=== PATIENT | female | born 1980 | race Caucasian/White ===

== ENCOUNTER 2018-07-09 02:52 | Inpatient (IN) | payer OTHER, SELFPAY ==
[2018-07-09] VITALS (21 sets, daily range): BP systolic 93–123; BP diastolic 50–71; PULSE 80–96; RESP 16–18; TEMP 36.1–37.1; O2SAT 97–100; BMI 35.3
[2018-07-09] MEDS: Lactated Ringers 1,000 ML 999 ML IV (04:05)
[2018-07-09 04:26] LABS: Absolute Lymphocyte Count 2.35 X10^3/ul (0.83-4.51); Absolute Neutrophil Count 10.5 X10^3/uL (2.0-7.7); Basophil# 0.03 X10^3/uL; Basophil% 0.2 % (0-1); Eosinophil# 0.14 X10^3/uL; Hematocrit 35.8 % (37-47); Hemoglobin 12.3 g/dl (12.0-15.0); Lymphocyte # 2.35 X10^3/ul (4.0); Lymphocyte % 16.5 % (19-41); Mean Corp Hgb Conc 34.4 g/gl (32-36); Mean Corpuscular Hgb 30.3 pg (27.0-32.0); Mean Corpuscular Volume 88.2 fL (81-99); Mean Platelet Vol. 10.6 fl (6.2-12.0); Monocyte# 1.08 X10^3/uL; Monocyte% 7.6 % (0-10); Neutrophil # 10.46 X10^3/uL (2.7-7.7); Neutrophil % 73.5 % (47-70); Platelet Count 206 K/mm3 (150-450); RBC Distribution Width CV 13.8 % (11.6-14.6); RBC Distribution Width SD 43.2 fl (35.1-43.9); Red Blood Count 4.06 M/mm3 (4.2-5.4); White Blood Count 14.2 K/mm3 (4.4-11.0)
[2018-07-09 04:27] LABS: POSITIVE COUNT NO; POSITIVE DIFFERENTIAL NO; POSITIVE MORPHOLOGY NO
[2018-07-09 05:06] LABS: Group B Strep DNA By PCR Negative (Negative); Internal Control PASS; Probe Check PASS; Specimen Processing Control PASS
[2018-07-09] MEDS: Cefazolin 2 GM in 0.9% Normal Saline 100 ML IV (05:47)
[2018-07-09] MEDS: Sodium Citrate/Citric Acid 30 ML UDC PO (05:48)
[2018-07-09] MEDS: Lactated Ringers 1,000 ML 150 ML IV (05:48)
--- NOTE | 2018-07-09 06:00 | PCM.HP.OB ---
- Problem List (1) 36 weeks gestation of Status: Acute (2) Rupture, membranes, premature Status: Acute (3) AMA (advanced maternal age) multigravida 35+ Status: Acute (4) History of delivery Status: Acute History Date of Admission: 07/09/18 Final DIANA: 08/02/18 Gestational age: 36 Weeks and 4 Days History of this : This is a 37 year-old, G2, P1001, at 36 weeks gestational age who presents with PPROM for clear fluid at home. Feeling mild contractions. No vb. +FM. Allergies No Known Allergies Allergy (Verified 07/09/18 03:45) Home Medications: Home Medications Vits [Prenatabs FA ] 1 tablet PO DAILY 03/20/15 Smoking Status: Never smoker Number of Fetus(es): 1 Heart Tracing: Category 1 History Past Pregnancies: Past Pregnancies Delivery Date Name GA/Weeks Outcome Route Weight Infant Gender Labor Length Anesthesia Delivery Location Provider FOB 40w4d PLTCS Expected Infant Delivery Method: Repeat Section Review of Systems Gynecological: Reports: - - +PPROM for clear fluid Physical Exam General: Alert, No apparent distress HEENT: Atraumatic Lungs: - - No increased resp effort Abdomen: Gravid Extremities:: No edema Neurological: Neuro grossly intact Estimated gestational size: Appropriate for gestational size Assessment/Plan All Active Problems 36 weeks gestation of (Acute) Rupture, membranes, premature (Acute) AMA (advanced maternal age) multigravida 35+ (Acute) History of delivery (Acute) This is a 37 year-old, G2, P1001, at 36 weeks gestational age who presents with PPROM. - Discussed risks and benefits of BMZ for lung maturity, and completing the course. Patient is agreeable to C/S rather than BMZ now and in 24 hours - Discussed baby may need to go to special care nursery, and small chance of baby needing transferred due to prematurity - Risks of a section discussed and patient signed consent - Will proceed with RLTCS
[2018-07-09] MEDS: Oxytocin 30 units/NS 500 ml 30 UNITS/500 ML IV.SOLN 167 UNITS IV (06:35)
[2018-07-09] MEDS: Ketorolac 30 MG/ML Syringe IV ×3 (07:05→19:02)
--- NOTE | 2018-07-09 07:22 | PCM.OPRPT ---
Problem List (1) 36 weeks gestation of Status: Acute (2) Rupture, membranes, premature Status: Acute (3) AMA (advanced maternal age) multigravida 35+ Status: Acute (4) History of delivery Status: Acute Report of Operation Date of Procedure: 07/09/18 Pre-Operative Diagnosis: 36 week gestation, PPROM, AMA, history of prior section Post-Operative Diagnosis: As above Surgery/Procedure Performed:: Repeat low transverse section via pfannenstiel skin incision Description of Surgical Findings:: Minimal adhesive disease. Rectus muscles adherent in the midline. Peritoneum adherent to the rectus. Bladder slightly adhered to the anterior uterus with adhesive bands on the patient's right side. Right fallopian tube adherent to the right side of the uterus. Baby in vertex position. Clear fluid. Intact and normal appearing placenta with 3 VC. Type of Anesthesia:: Spinal Specimen's removed: Placenta Estimated Blood Loss (mL): 500 Description of Procedure: Patient was prepped and draped in usual sterile fashion. Abdominal and vaginal preps were performed. Spinal anesthesia was noted to be adequate. The prior Pfannenstiel skin incision was used, and using a scalpel the incision was carried down to the fascia. The fascia was incised in the midline and extended laterally using Weiner scissors. The fascia was then dissected off of the rectus muscles cephalad and caudad using sharp dissection. The rectus muscles were adherent in the midline. The Bovie cautery was used to start to separate the rectus muscles in the midline. The rectus muscles were then in the midline using sharp dissection, and the peritoneum was noted to be adhered to the rectus. The peritoneum was extended superior and inferior with good visualization of the bladder. A bladder flap was attempted to be created, but due to adhesions a full bladder flap was not created. A low transverse incision was made on the uterus with good visualization of the bladder. Clear fluid noted. was in vertex position and elevated out of the uterine incision. VFI delivered atraumatically, and without any force or delay. was dried and bulb suctioned, and the cord was clamped and cut after 60 sec delay. handed off to nursery staff. The placenta was manually removed. The placenta was noted to be normal and intact with a 3 VC. The uterus was exteriorized. The right fallopian tube was noted to be adhered to the uterus. Otherwise bilateral adnexa were normal. The uterus was cleared of all clot and debris. The uterine incision was closed in a running locked fashion. The right angle of the uterine incision was minimally bleeding after closure, therefore several additional [id number] sutures were placed at the right angle for hemostasis. Hemostasis was noted. The uterus was placed back into the abdomen. The uterine incision was again inspected and noted to be hemostatic. Arrista was placed over the uterine incision. The peritoneum was closed in a running fashion. The fascia was closed in a running fashion. The subcutaneous layer was irrigated, and then closed in a running fashion. The skin was closed with suture in a subcuticular fashion. Steri strips were placed, as well as a dressing. Patient tolerated procedure well and was taken to the recovery room in stable condition. Instrument counts were correct. Grafts/Implants Used: None - Complications None - Admit VTE Documentation VTE Present on Admission: No VTE Mechan Device Prophylaxis: SCD's VTE Pharm Prophylaxis ordered?: No Delivery Classification: REINIER Final DIANA: 08/02/18 Gestational age: 36 Weeks and 4 Days Indications for : - - Prior section, PPROM Description of Procedure: See above Amniotic Membrane Rupture Type: Spontaneous Amniotic Fluid Description: Clear Specimen(s) sent to pathology: None Drain: Salgado to straight drain Cord Entanglement: None Cord Vessel Description: 3 Vessels Esitmated Blood Loss (ml): 500 Gender: Female (1 minute): 8 (5 minute): 9 Delayed cord clamping: Yes Pre-op Antibiotic Given: Ancef 2 grams IV x1 Pt instructed on risks of surgery: Bleeding, Infection, Injury to surrounding structure(s) including bowel and bladder Complications: None - Admit VTE Documentation VTE Present on Admission: No VTE Mechan Device Prophylaxis: SCD's VTE Pharm Prophylaxis ordered?: No Baby B - Information Amniotic Membrane Rupture Type: Spontaneous Presentation: Vertex - Operative Information Cord Entanglement: None Cord Vessel Description: 3 Vessels B gender: Female (1 minute): 8 (5 minute): 9
--- NOTE | 2018-07-09 07:38 | OP.PCM_ITS ---
Problem List (1) 36 weeks gestation of Status: Acute (2) Rupture, membranes, premature Status: Acute (3) AMA (advanced maternal age) multigravida 35+ Status: Acute (4) History of delivery Status: Acute Report of Operation Date of Procedure: 07/09/18 Pre-Operative Diagnosis: 36 week gestation, PPROM, AMA, history of prior section Post-Operative Diagnosis: As above Surgery/Procedure Performed:: Repeat low transverse section via pfannenstiel skin incision Description of Surgical Findings:: Minimal adhesive disease. Rectus muscles adherent in the midline. Peritoneum adherent to the rectus. Bladder slightly adhered to the anterior uterus with adhesive bands on the patient's right side. Right fallopian tube adherent to the right side of the uterus. Baby in vertex position. Clear fluid. Intact and normal appearing placenta with 3 VC. Type of Anesthesia:: Spinal Specimen's removed: Placenta Estimated Blood Loss (mL): 500 Description of Procedure: Patient was prepped and draped in usual sterile fashion. Abdominal and vaginal preps were performed. Spinal anesthesia was noted to be adequate. The prior Pfannenstiel skin incision was used, and using a scalpel the incision was carried down to the fascia. The fascia was incised in the midline and extended laterally using Weiner scissors. The fascia was then dissected off of the rectus muscles cephalad and caudad using sharp dissection. The rectus muscles were adherent in the midline. The Bovie cautery was used to start to separate the rectus muscles in the midline. The rectus muscles were then in the midline using sharp dissection, and the peritoneum was noted to be adhered to the rectus. The peritoneum was extended superior and inferior with good vis ualization of the bladder. A bladder flap was attempted to be created, but due to adhesions a full bladder flap was not created. A low transverse incision was made on the uterus with good visualization of the bladder. Clear fluid noted. Infant was in vertex position and elevated out of the uterine incision. VFI delivered atraumatically, and without any force or delay. Infant was dried and bulb suctioned, and the cord was clamped and cut after 60 sec delay. Infant handed off to nursery staff. The placenta was manually removed. The placenta was noted to be normal and intact with a 3 VC. The uterus was exteriorized. The right fallopian tube was noted to be adhered to the uterus. Otherwise bilateral adnexa were normal. The uterus was cleared of all clot and debris. The uterine incision was closed in a running locked fashion. The right angle of the uterine incision was minimally bleeding after closure, therefore several additional [id number] sutures were placed at the right angle for hemostasis. Hemostasis was noted. The uterus was placed back into the abdomen. The uterine incision was again inspected and noted to be hemostatic. Arrista was placed over the uterine incision. The peritoneum was closed in a running fashion. The fascia was closed in a running fashion. The subcutaneous layer was irrigated, and then closed in a running fashion. The skin was closed with suture in a subcuticular fashion. Steri strips were placed, as well as a dressing. Patient tolerated procedure well and was taken to the recovery room in stable condition. Instrument counts were correct. Grafts/Implants Used: None - Complications None - Admit VTE Documentation VTE Present on Admission: No VTE Mechan Device Prophylaxis: SCD's VTE Pharm Prophylaxis ordered?: No Delivery Classification: REINIER Final DIANA: 08/02/18 Gestational age: 36 Weeks and 4 Days Indications for : - - Prior section, PPROM Description of Procedure: See above Amniotic Membrane Rupture Type: Spontaneous Amniotic Fluid Description: Clear Specimen(s) sent to pathology: None Drain: Salgado to straight drain Cord Entanglement: None Cord Vessel Description: 3 Vessels Esitmated Blood Loss (ml): 500 Infant Gender: Female (1 minute): 8 (5 minute): 9 Delayed cord clamping: Yes Pre-op Antibiotic Given: Ancef 2 grams IV x1 Pt instructed on risks of surgery: Bleeding, Infection, Injury to surrounding structure(s) including bowel and bladder Complications: None - Admit VTE Documentation VTE Present on Admission: No VTE Mechan Device Prophylaxis: SCD's VTE Pharm Prophylaxis ordered?: No Baby B - Information Amniotic Membrane Rupture Type: Spontaneous Presentation: Vertex - Operative Information Cord Entanglement: None Cord Vessel Description: 3 Vessels Infant B gender: Female (1 minute): 8 (5 minute): 9
[2018-07-09] MEDS: Lactated Ringers 1,000 ML 100 ML IV ×2 (12:18→22:31)
[2018-07-09] MEDS: 0.9% Saline Lock 10 ML Syringe IV (13:31)
--- NOTE | 2018-07-09 16:12 | NURSING ---
pt up to chair and continuous pulse ox disconnected until pt ambulates back to bed. plan to stay up in chair for at least 30 min if pt can tolerate. pt attempting to nurse infant at this time. will reapply pulse ox.
[2018-07-09] MEDS: Enoxaparin 40 MG/0.4 ML Syringe SC (20:25)
[2018-07-10] VITALS (8 sets, daily range): BP systolic 98–123; BP diastolic 57–68; PULSE 86–94; RESP 16–18; TEMP 36.3–36.8; O2SAT 96–100
[2018-07-10] MEDS: Ketorolac 30 MG/ML Syringe IV ×2 (00:20→06:01)
[2018-07-10] MEDS: 0.9% Saline Lock 10 ML Syringe IV (06:01)
[2018-07-10 06:24] LABS: Hematocrit 31.4 % (37-47); Hemoglobin 10.5 g/dl (12.0-15.0); Mean Corp Hgb Conc 33.4 g/gl (32-36); Mean Corpuscular Hgb 30.3 pg (27.0-32.0); Mean Corpuscular Volume 90.5 fL (81-99); Platelet Count 175 K/mm3 (150-450); RBC Distribution Width CV 14.1 % (11.6-14.6); RBC Distribution Width SD 46.4 fl (35.1-43.9); Red Blood Count 3.47 M/mm3 (4.2-5.4); White Blood Count 12.8 K/mm3 (4.4-11.0)
[2018-07-10 06:45] LABS: Scan Indicated on CBC? Y/N NO
--- NOTE | 2018-07-10 08:08 | PCM.PN.OB ---
Patient Problems: Active and Suspected Problems 36 weeks gestation of (Acute) Rupture, membranes, premature (Acute) AMA (advanced maternal age) multigravida 35+ (Acute) History of delivery (Acute) Subjective: pt seen at bedside, doing well. reports good pain control. lochia mild. voiding w/o difficulty. no flatus yet. - Physical Exam General: Alert, Oriented x3 Abdomen: Soft, Non-Distended, - - fundus firm. dressing intact and dry Extremities: No Calf Tenderness Vital Signs Temp Pulse Resp BP Pulse Ox 97.4 F L 90 18 98/57 L 100 07/10/18 04:40 07/10/18 04:40 07/10/18 04:40 07/10/18 04:40 07/10/18 04:40 Oxygen Delivery Method Room Air Weight: 84.822 kg Body Mass Index (BMI) 35.3 Intake and Output for Last 24 Hours 07/08/18 07/09/18 07/10/18 23:59 23:59 23:59 Intake Total 2099 / 2099 897 / 897 Output Total 2200 / 2200 1075 / 1075 Balance -101 / -101 -178 / -178 Laboratory Tests Past 24 Hrs 07/10/18 06:00 WBC 12.8 H RBC 3.47 L Hgb 10.5 L Hct 31.4 L MCV 90.5 MCH 30.3 MCHC 33.4 RDW 14.1 RDW Differential 46.4 H Plt Count 175 MPV 10.0 Medical Necessity - Tobacco Use Smoking Status: Never smoker Assessment/Plan All Active Problems 36 weeks gestation of (Acute) Rupture, membranes, premature (Acute) AMA (advanced maternal age) multigravida 35+ (Acute) History of delivery (Acute) POD#1, doing well routine care pain mgmt ambulation
[2018-07-10] MEDS: Enoxaparin 40 MG/0.4 ML Syringe SC (10:24)
[2018-07-10] MEDS: Senna/Docusate Sodium 1 Tablet PO (10:24)
[2018-07-10] MEDS: Ibuprofen 600 MG Tablet PO ×2 (12:36→18:34)
--- NOTE | 2018-07-10 18:37 | NURSING ---
k pad initiated for cramping and motrin given per patient request.
[2018-07-10] MEDS: Acetaminophen 500 MG Tablet 1000 MG PO (23:14)
[2018-07-11 01:16] VITALS: BP 127/56; PULSE 93; RESP 18; TEMP 36.5; O2SAT 95
[2018-07-11] MEDS: Senna/Docusate Sodium 1 Tablet PO (03:33)
[2018-07-11] MEDS: Ibuprofen 600 MG Tablet PO ×2 (03:33→10:55)
[2018-07-11 09:49] VITALS: BP 111/63; PULSE 84; RESP 16; TEMP 36.4; O2SAT 96
[2018-07-11] MEDS: Enoxaparin 40 MG/0.4 ML Syringe SC (10:49)
--- NOTE | 2018-07-11 12:59 | PCM.PN.OB ---
Patient Problems: Active and Suspected Problems 36 weeks gestation of (Acute) Rupture, membranes, premature (Acute) AMA (advanced maternal age) multigravida 35+ (Acute) History of delivery (Acute) Subjective: Patient doing well. Ambulating and voiding without difficulty. Dorian reg diet without N/V. Pain is controlled. Lochia normal. No lightheadedness, dizziness, CP, SOB, leg pain. She feels ready to go home - Physical Exam General: Alert, No apparent distress HEENT: Atraumatic Lungs: - - No increased resp effort Abdomen: Soft, - - ATTP, FF@U Extremities: No Calf Tenderness Skin: No rashes Neurological: Neuro grossly intact Psych/Mental Status: Normal Affect, Appropriate Vital Signs Temp Pulse Resp BP Pulse Ox 97.6 F L 84 16 111/63 96 07/11/18 09:49 07/11/18 09:49 07/11/18 09:49 07/11/18 09:49 07/11/18 09:49 Oxygen Delivery Method Room Air Weight: 187 lb Body Mass Index (BMI) 35.3 Intake and Output for Last 24 Hours 07/09/18 07/10/18 07/11/18 23:59 23:59 23:59 Intake Total 2099 / 2099 897 / 897 Output Total 2200 / 2200 1075 / 1075 Balance -101 / -101 -178 / -178 Medical Necessity - Tobacco Use Smoking Status: Never smoker Assessment/Plan All Active Problems 36 weeks gestation of (Acute) Rupture, membranes, premature (Acute) AMA (advanced maternal age) multigravida 35+ (Acute) History of delivery (Acute) POD#2 s/p RLTCS - Doing well - Patient desires to go home today. Meeting all milestones for discharge, and reviewed discharge instructions
--- NOTE | 2018-07-11 13:01 | PCM.DCCSEC ---
Discharge Diet: No Restrictions Discharge Activity: May not drive while taking narcotic pain medications., May Shower May resume sexual activity in: 4-6 weeks Weight Bearing Status: Weight bearing as tolerated, Full weight bearing Lifting Restrictions: No lifting > 25-30 pounds Call your doctor if your incision/area has: Increased Pain/ Swelling, Increased Redness, Foul Smelling Discharge, Swelling at the incision site Call your doctor if you observe: Fever of 101 or Higher, Inability to urinate, Inability to have a bowel movement, Using more than one pad per hour, Shortness of breath, Dizziness, Fainting spells, Chest pain, Increased palpitations (irregular heartbeat), Calf discomfort, Uncontrolled pain Suture Line Care: Avoid Pulling/Pushing Remove Dressing in (days):: 3 - 5 days from surgery Cleanse incision/area with: Soap & Water Instructions: After a Additional Instructions: If you experience any of the following, contact your healthcare provider. Bleeding that soaks a pad every hour for 2 hours Fever 100.4 or higher Unrelieved incision or abdominal pain Swelling, redness, discharge or bleeding from your incision or episiotomy site Your incision begins to separate Problems urinating (including inability to urinate or burning while urinating). Visual changes Severe headache Flu-like symptoms Pain or redness in one of both of your breasts Pain, warmth, tenderness or swelling in your legs, especially the calf area Frequent nausea and vomiting Symptoms of depression or anxiety If you experience any of the following, call 911 or go to the nearest Emergency Room. Chest pain Problems breathing Seizure activity Partial or complete paralysis of a body part, slurred speech, weakness or drooping of the face, or a sudden inability to walk or hold your balance Allergies/Adverse Reactions: Allergies No Known Allergies Allergy (Verified 07/09/18 03:45) Medications to take at Discharge Vits [Prenatabs FA ] 1 tablet PO DAILY 03/20/15 Follow-Up: Call to make an appointment with your doctor for an incision check in 1-2 weeks. You will also need a 6 week post- follow up appointment. Test results from this visit will be discussed in further detail at your follow-up appointment, if applicable. When: 1 week for incision check. 6 weeks for visit Primary Care Physician: Care Physician,No Primary [Primary Care Provider] - Proposed Discharge Date: 07/11/18
--- NOTE | 2018-07-11 13:05 | DCINST_ITS ---
Discharge Diet: No Restrictions Discharge Activity: May not drive while taking narcotic pain medications., May Shower May resume sexual activity in: 4-6 weeks Weight Bearing Status: Weight bearing as tolerated, Full weight bearing Lifting Restrictions: No lifting > 25-30 pounds Call your doctor if your incision/area has: Increased Pain/ Swelling, Increased Redness, Foul Smelling Discharge, Swelling at the incision site Call your doctor if you observe: Fever of 101 or Higher, Inability to urinate, Inability to have a bowel movement, Using more than one pad per hour, Shortness of breath, Dizziness, Fainting spells, Chest pain, Increased palpitations (irregular heartbeat), Calf discomfort, Uncontrolled pain Suture Line Care: Avoid Pulling/Pushing Remove Dressing in (days):: 3 - 5 days from surgery Cleanse incision/area with: Soap & Water Instructions: After a Additional Instructions: If you experience any of the following, contact your healthcare provider. * Bleeding that soaks a pad every hour for 2 hours * Fever 100.4 or higher * Unrelieved incision or abdominal pain * Swelling, redness, discharge or bleeding from your incision or episiotomy site * Your incision begins to separate * Problems urinating (including inability to urinate or burning while urinating). * Visual changes * Severe headache * Flu-like symptoms * Pain or redness in one of both of your breasts * Pain, warmth, tenderness or swelling in your legs, especially the calf area * Frequent nausea and vomiting * Symptoms of depression or anxiety If you experience any of the following, call 911 or go to the nearest Emergency Room. * Chest pain * Problems breathing * Seizure activity * Partial or complete paralysis of a body part, slurred speech, weakness or drooping of the face, or a sudden inability to walk or hold your balance Allergies/Adverse Reactions: Allergies No Known Allergies Allergy (Verified 07/09/18 03:45) Medications to take at Discharge Vits [Prenatabs FA ] 1 tablet PO DAILY 03/20/15 Follow-Up: Call to make an appointment with your doctor for an incision check in 1-2 weeks. You will also need a 6 week post- follow up appointment. Test results from this visit will be discussed in further detail at your follow- up appointment, if applicable. When: 1 week for incision check. 6 weeks for visit Primary Care Physician: Care Physician,No Primary [Primary Care Provider] - Proposed Discharge Date: 07/11/18
[2018-07-11 14:46] VITALS: BP 111/64; PULSE 82; RESP 16; TEMP 36.6; O2SAT 98
== END 2018-07-11 16:50 | disposition home or self-care (01) | DRG 788 ==
PROVIDERS: Admitting Provider Obstetrics & Gynecology; Visit Provider Obstetrics & Gynecology
DX: O42.913 Preterm premature rupture of membranes, unspecified as to length of time between rupture and onset of labor, third trimester (principal); O34.211 Maternal care for low transverse scar from previous cesarean delivery; Z3A.36 36 weeks gestation of pregnancy; Z37.0 Single live birth
CPT/HCPCS: 59025; 59050; 85025; 85027; 86850; 86900; 87077; 87081; 87186; 87653; 99218; J7120; A4216; G0378